=== PATIENT | female | born 1975 | race Hispanic/Latino ===

== ENCOUNTER 2017-09-22 07:38 | Emergency (ER) | payer OTHER ==
[~2017-09-22] VITALS: Ht 152.4 cm; Wt 65.8 kg
--- OUTSIDE RECORDS SUMMARY | 2017-09-22 07:41 | XMS REPORT | Clinical Summary ---
Author Author [facility] Address Unknown Phone Unavailable Care Team Providers Care Keno Clerk Name Role Phone Nataliya Rabago MD PCP Allergies No Known Allergies Current Medications Not on file Active Problems Problem Noted Date Acute laryngitis 06/15/2016 Acute maxillary sinusitis 06/15/2016 Encounters Date Type Specialty Care Team Description 03/13/2017 Refill Internal Medicine Nataliya Rabago MD 12/29/2016 Telephone Internal Medicine Kayla Mulligan MA after 09/21/2016 Social History Tobacco Use Types Packs/Day Years Used Date Never Smoker Alcohol Use Drinks/Week oz/Week Comments No Sex Assigned at Date Recorded Not on file Last Filed Vital Signs Not on file Plan of Treatment Health Maintenance Due Date Last Done Comments PAP SMEAR 1996 INFLUENZA VACCINE 03/15/2017 Results Not on fileafter 09/21/2016 Insurance Payer Benefit Subscriber ID Type Phone Address Plan / Group [employer] [id number] PPO BLUE CROSS
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
== END 2017-09-22 10:18 | disposition home or self-care (01) ==
LOC: ER 07:38
DX: S16.1XXA Strain of muscle, fascia and tendon at neck level, initial encounter (principal); M47.812 Spondylosis without myelopathy or radiculopathy, cervical region; V43.52XA Car driver injured in collision with other type car in traffic accident, initial encounter
CPT/HCPCS: 72050; 99284

== ENCOUNTER → 2018-06-28 | Outpatient (CLI) | payer OTHER ==
--- NOTE | 2018-06-28 16:56 | Diagnostic Imaging Report ---
TECHNIQUE: Magnetic resonance imaging of the RIGHT KNEE was performed WITHOUT injected contrast. HISTORY: Right knee pain, fall COMPARISON: None available. FINDINGS: LIGAMENTS AND TENDONS: ACL: Intact PCL: Intact Collateral ligaments: Intact Iliotibial band: Unremarkable Popliteal tendon: Intact Extensor mechanism: Edema in superior lateral Hoffa's fat. Extremity mechanism intact. JOINT: Menisci: Medial: Intact Lateral: Intact Articular Cartilage: Medial Compartment: No focal defect. Lateral Compartment: No focal defect. Patellofemoral Compartment: No focal defect. Joint Fluid: The amount of fluid within the joint is within physiologic limits. BONE: No focal or infiltrative bone marrow replacing abnormality. No acute fracture. SOFT TISSUES: Otherwise, unremarkable. IMPRESSION: No acute osseous, ligamentous, or meniscal abnormality. Findings of patellofemoral maltracking/impingement syndrome with edema in Hoffa's fat. Signed by: Dr. Alexander Sánchez M.D. on 06/28/2018 4:53 PM
== END ==
LOC: MRI 15:46
PROVIDERS: ATTEND Family Medicine
DX: S89.91XA Unspecified injury of right lower leg, initial encounter (principal)